=== PATIENT | female | born 1970 | race Caucasian/White ===

== ENCOUNTER 2023-03-27 12:20 | Emergency (ER) | payer BC ==
[2023-03-27 13:41] LABS: APPEARANCE,URINE CLEAR; BILIRUBIN,URINE NEGATIVE (NEGATIVE); COLOR,URINE ORANGE; GLUCOSE,URINE 100 mg/dL (NEGATIVE); KETONES,URINE NEGATIVE (NEGATIVE); LEUKOCYTE ESTERASE,URINE SMALL (NEGATIVE); NITRITE,URINE POSITIVE (NEGATIVE); OCCULT BLOOD,URINE TRACE-INTACT (NEGATIVE); PH,URINE 6.5 (5.0-8.0); PROTEIN,URINE TRACE mg/dL (NEGATIVE)
[2023-03-27 13:48] LABS: BACTERIA,URINE 3+ (NEGATIVE); EPITHELIAL CELLS,URINE RARE (NONE-FEW); RBC,URINE 0-2 (0-2/HPF)
[2023-03-27] MEDS ORDERED: Cephalexin 500 MG Cap PO STA (14:01)
[2023-03-27 14:51] VITALS: BP 149/86; PULSE 93
== END 2023-03-27 14:42 | disposition home or self-care (01) ==
LOC: MW.ED 12:20
DX: N30.01 Acute cystitis with hematuria (principal); Z79.899 Other long term (current) drug therapy
CPT/HCPCS: 81001; 87086; 99284; A9270

== ENCOUNTER 2024-07-31 20:14 | Emergency (ER) | payer BC ==
[2024-07-31] MEDS: Acetaminophen 500 MG Tab PO ONE (21:08)
[2024-07-31] MEDS: Lidocaine 4% Patch TOP ONE (21:08)
[2024-07-31] MEDS: Dexamethasone 4 MG Tab PO ONE (21:08)
[2024-07-31] MEDS: Ketorolac 30 MG/ML SDV IM ONE (21:14)
[2024-07-31] MEDS: Orphenadrine 60 MG/2 ML Inj IM ONE (21:15)
[2024-07-31 21:47] LABS: APPEARANCE,URINE CLEAR; BILIRUBIN,URINE NEGATIVE (NEGATIVE); COLOR,URINE YELLOW; GLUCOSE,URINE NEGATIVE (NEGATIVE); KETONES,URINE NEGATIVE (NEGATIVE); LEUKOCYTE ESTERASE,URINE NEGATIVE (NEGATIVE); NITRITE,URINE NEGATIVE (NEGATIVE); OCCULT BLOOD,URINE NEGATIVE (NEGATIVE); PROTEIN,URINE NEGATIVE (NEGATIVE); UROBILINOGEN,URINE 0.2 EU/dL (<2.0)
[2024-07-31 21:56] LABS: AMPHETAMINES SCREEN, URINE NEGATIVE (CUTOFF=500); BARBITURATE SCREEN,URINE NEGATIVE (CUTOFF=200); BENZODIAZEPINES SCREEN,URINE NEGATIVE (CUTOFF=150); BUPRENORPHINE SCREEN,URINE NEGATIVE (CUTOFF=10); METHADONE SCREEN, URINE NEGATIVE (CUTOFF=200); METHAMPHETAMINES SCREEN, URINE NEGATIVE (CUTOFF=500); OXYCODONE SCREEN,URINE NEGATIVE (CUT0FF=100); PCP SCREEN,URINE NEGATIVE (CUTOFF=25); THC SCREEN,URINE 20 NG/ML NEGATIVE (CUTOFF=50)
[2024-07-31 23:21] VITALS: BP 142/81; PULSE 98
== END 2024-07-31 22:25 | disposition home or self-care (01) ==
LOC: MW.ED 20:14
DX: M54.41 Lumbago with sciatica, right side (principal); M51.370 Other intervertebral disc degeneration, lumbosacral region with discogenic back pain only; M54.17 Radiculopathy, lumbosacral region; I10 Essential (primary) hypertension; Z90.49 Acquired absence of other specified parts of digestive tract; Z79.899 Other long term (current) drug therapy
CPT/HCPCS: 72131; 80305; 81003; 96372; 99284; A9270; J1885; J2360; J8540